=== PATIENT | female | born 1930 | race Hispanic/Latino ===

== ENCOUNTER → 2017-12-17 | Outpatient (CLI) | payer MEDICARE ==
[~2017-12-17] MED LIST: AZIT250T9 PO; DOCU100T PO; FURO40TA5 PO; HYDR-4154 PO; LACT10SO8 PO; LORA10TA7 PO; LOSA100T20 PO; NASAL SPRAY; NITR0.4T SL; OMEP40CA37 PO; RANEXA PO
== END | disposition home or self-care (01) ==
LOC: SHCH 15:29
PROVIDERS: ATTEND Internal Medicine Cardiovascular Disease
DX: I51.7 Cardiomegaly (principal); Z95.2 Presence of prosthetic heart valve
CPT/HCPCS: 93306

== ENCOUNTER → 2017-12-23 | Outpatient (CLI) | payer MEDICARE ==
[~2017-12-23] VITALS: Ht 149.9 cm; Wt 74.8 kg
[~2017-12-23] MED LIST changes: +REGADENOSON 0.4 MG/5 ML PF SYG IVP SCH
== END | disposition home or self-care (01) ==
LOC: SHCH 09:52
PROVIDERS: ATTEND Internal Medicine Cardiovascular Disease
DX: R06.09 Other forms of dyspnea (principal); I25.10 Atherosclerotic heart disease of native coronary artery without angina pectoris; E03.9 Hypothyroidism, unspecified; I10 Essential (primary) hypertension
CPT/HCPCS: 78452; 93017; 96374; A9500 ×2; J2785

== ENCOUNTER → 2018-09-10 | Outpatient (CLI) | payer MEDICARE ==
[~2018-09-10] MED LIST changes: -LOSA100T20 PO; +LOSA100T58 PO; -REGADENOSON 0.4 MG/5 ML PF SYG IVP SCH
== END | disposition home or self-care (01) ==
LOC: SHCH 08:46
PROVIDERS: ATTEND Internal Medicine Cardiovascular Disease
DX: I87.2 Venous insufficiency (chronic) (peripheral) (principal)
CPT/HCPCS: 93970

== ENCOUNTER → 2021-11-07 | Outpatient (CLI) | payer MEDICARE ==
[~2021-11-07] MED LIST changes: +ALBUHFA IH; -AZIT250T9 PO; +CARV12.511 PO; +CYAN500T9 PO; +DOCU-116 PO; -DOCU100T PO; +FLUT1AER IH; +FOLI0.8T3 PO; +FURO20TA4 PO; -FURO40TA5 PO; -HYDR-4154 PO; -LACT10SO8 PO; +LEVO25TA54 PO; +LISI10TA24 PO; -LORA10TA7 PO; -LOSA100T58 PO; +MONT-39 PO; -NASAL SPRAY; -NITR0.4T SL; -OMEP40CA37 PO; -RANEXA PO; +RANO500T3 PO
== END | disposition home or self-care (01) ==
LOC: SHCH 10:40
PROVIDERS: ATTEND Internal Medicine Cardiovascular Disease
DX: I08.0 Rheumatic disorders of both mitral and aortic valves (principal); R06.09 Other forms of dyspnea; Z95.2 Presence of prosthetic heart valve; Z95.1 Presence of aortocoronary bypass graft; E11.9 Type 2 diabetes mellitus without complications
CPT/HCPCS: 93306